=== PATIENT | male | born 1945 | race Caucasian/White ===

== ENCOUNTER 2019-02-02 16:24 | Emergency (ER) | payer MEDICARE ==
[2019-02-02 16:33] VITALS: TEMP 97.7
[2019-02-02] MEDS ORDERED: LIDOCAINE 1% INJ 10MG/ML (20 ML MDV) SQ ONE (17:02)
--- NOTE | 2019-02-02 17:26 | XR ---
PROCEDURE: XR 4th finger RT - 3V DATE AND TIME: 02/02/2019 5:16 PM CLINICAL INDICATION: PHH; right 4th digit TECHNIQUE: Department protocol COMPARISON: None FINDINGS: There is no fracture or malalignment. No radiopaque foreign body. There is moderate soft tissue swelling at the tip of the fourth finger, surrounding the distal 4th ph alanx and 4th DIP joint. IMPRESSION: Soft tissue swelling.
[2019-02-02] MEDS ORDERED: cefTRIAXone 1,000 MG VIAL (IM USE) IM STA (18:23)
--- NOTE | 2019-02-02 18:25 | ED ---
Skin/Abscess/FB HPI - General Chief complaint: Skin/Abscess/Foreign Body Stated complaint: Finger infection Time Seen by Provider: 02/02/19 16:36 Source: patient Mode of arrival: ambulatory Limitations: no limitations - History of Present Illness Initial comments: 74-year-old male with history of hypertension presenting today for chief complaint of right ring finger infection. Patient states about 6-7 days ago he cut the very tip of his finger with a custom feed corn operator. Patient states that he tightly wrapped the finger because it would not stop bleeding at that time with tape. Patient states that he began noticing after 2 days of keeping the tape on the had significant pain except up at night in the digit. He states he took the tape off he noticed pus at the tip of the finger on the pad of the finger. Patient states he attempted to drain it with a sterile needle that he was on fire prior to puncture. Patient states that he was able to drain some clear fluid. Patient denies fever or flulike symptoms. Denies any limitations in range of motion at the digit. Patient denies any fusiform swelling or 6 positioning of the finger. Patient denies any other area of complaint. Patient remaining review of system negative. Patient is not currently on antibiotics. - Related Data Previous Rx's Medication Instructions Recorded Cephalexin [Keflex] 500 mg PO Q6HR 10 Days #40 cap 02/02/19 Sulfamethox-Tmp 800-160Mg [Bactrim 1 tab PO Q12HR 10 Days #20 tab 02/02/19 DS 800-160 mg] Allergies Allergy/AdvReac Type Severity Reaction Status Date / Time No Known Allergies Allergy Verified 02/02/19 16:33 Review of Systems ROS Statement: Those systems with pertinent positive or pertinent negative responses have been documented in the HPI. ROS Other: All systems not noted in ROS Statement are negative. Past Medical History Past Medical History: Hypertension History of Any Multi-Drug Resistant Organisms: None Reported Past Surgical History: Cholecystectomy, Orthopedic Surgery, Tonsillectomy Past Psychological History: No Psychological Hx Reported Smoking Status: Never smoker Past Alcohol Use History: Rare Past Drug Use History: None Reported General Exam - General Exam Comments Initial Comments: General: The patient is awake and alert, in no distress, and does not appear acutely ill. Eye: Pupils on gross inspect appear equal, round, extra-ocular movements are intact grossly. No nystagmus. There is normal conjunctiva bilaterally. No signs of icterus. Cardiovascular: There is a regular rate and rhythm. No murmur, rub or gallop is appreciated. Respiratory: Lungs are clear to auscultation, respirations are non-labored, breath sounds are equal. No wheezes, stridor, rales, or rhonchi. Musculoskeletal: Upon inspection of the digits of both hands the pad of the right fourth digit has a obvious abscess. Fluctuance noted as well as white discoloration. This does not appear to be adjacent to the nailbed. There is mild erythema no fusiform swelling of the digit. Patient is able to fully extend and flex at the MTP DIP and PIP joint of the digit. Norflex positioning noted. Strength preserved sensation intact both proximal and distal to the affected area. Patient's capillary refill less than 3 seconds. And radial pulses are +2 equal comparison bilaterally. No noted swelling of the hand. Neurological: A&O x 3. CN II-XII intact grossly, There are no obvious motor or sensory deficits. Coordination appears grossly intact. Speech is normal. Skin: Skin is warm and dry and no rashes. Psychiatric: Cooperative, appropriate mood & affect, normal judgment. Limitations: no limitations Course Vital Signs 02/02/19 02/02/19 16:29 18:36 Temperature 97.7 F 97.7 F Pulse Rate 68 66 Respiratory 18 13 Rate Blood Pressure 156/78 199/94 O2 Sat by Pulse 97 98 Oximetry Procedures - Incision & Drainage Consent Obtained: verbal consent Indication: Abscess/felon Site: other (right 4th digit) Anesthetic Used: lidocaine 1% Amount (mLs): 3 (Digital block) I&D Cleaning Method: Iodine Sterile Field Used?: No Scalpel Used: #11 Needle Aspiration Performed?: No Irrigation Performed?: Yes I&D Drainage Obtained: Blood, Serous Culture Obtained?: No Patient Tolerated Procedure: well, no complications Medical Decision Making - Medical Decision Making Very pleasant 74-year-old male presenting for possible fourth right digit infection. There appears to be a developing fallen on physical examination. Imaging studies were obtained to rule out osteomyelitis. Only evidence of soft tissue swelling and imaging studies. Patient has no flulike symptoms. Afebrile. There is no findings consistent with a flexor tenosynovitis. I have patient evaluated in person by my attending provider Dr. Lay who recommended drainage and dual coverage antibiotics. Given the area of fluctuance he recommended approach from both sides with small incisions. I&D was performed only a small mall of serosanguineous fluid was obtained no large amount of gross paulette purulent drainage. Abscess appeared drained and appeared to be more superficial. There is no need for deeper incision at this time. The importance of return parameters and a wound check in 48 hours was discussed with patient. We discussed that there is high risk of spread of infection within the hand. Patient verbalized understanding. He states he will check and change the bandage daily to evaluate the extent of the infection. Patient appears well. Patient was discharged appearing well after bandage was applied to the area. He tolerated the procedure well. Disposition Clinical Impression: Ally of finger Disposition: HOME SELF-CARE Condition: Good Instructions (If sedation given, give patient instructions): Paronychia (ED) Additional Instructions: Please use medication as discussed. Please follow-up with orthopedic surgery in the next week. Please return to emergency room if the symptoms increase or worsen or for any other concerns, increasing swelling, redness, pain, drainage, flu like symtpoms, fever. Prescriptions: Sulfamethox-Tmp 800-160Mg [Bactrim DS 800-160 mg] 1 tab PO Q12HR 10 Days #20 tab Cephalexin [Keflex] 500 mg PO Q6HR 10 Days #40 cap Is patient prescribed a controlled substance at d/c from ED?: No Referrals: Charly Moreira MD [Primary Care Provider] - 1-2 days Lázaro Patterson DO [Medical Doctor] - 1-2 days Time of Disposition: 18:25
[2019-02-02 18:52] VITALS: BP 199/94; PULSE 66; RESP 13
== END 2019-02-02 18:36 | disposition home or self-care (01) ==
LOC: EC 16:24
DX: L03.011 Cellulitis of right finger (principal)
CPT/HCPCS: 73140; 99283; 10060; 96372; J2001; J0696

== ENCOUNTER 2019-02-11 12:46 | Emergency (ER) | payer MEDICARE ==
[2019-02-11 12:57] VITALS: BP 137/72; PULSE 77; RESP 18; TEMP 97.8
--- NOTE | 2019-02-11 13:35 | ED ---
Skin/Abscess/FB HPI - General Chief complaint: Skin/Abscess/Foreign Body Stated complaint: recheck finger injury Time Seen by Provider: 02/11/19 13:04 Source: patient, RN notes reviewed, old records reviewed Mode of arrival: ambulatory Limitations: no limitations - History of Present Illness Initial comments: This is a 74-year-old male the ER for evaluation. Patient resents today for evaluation regards to recheck of finger evaluation, recheck of finger pain. Patient has right index finger history of laceration, infection, difficult healing. Patient coming in for increased pain. No symptoms going up had no symptoms going up arm, no fevers. Patient did see Dr. Culp and follow-up as directed MD complaint: abscess/boil, lesion (Right index finger) -: week(s) Location: R hand Severity: mild, moderate Severity scale (1-10): 2 Quality: aching Consistency: constant Improves with: none Worsens with: none, palpation, movement Context: recent antibiotic Associated symptoms: denies other symptoms - Related Data Home Medications Medication Instructions Recorded Confirmed Losartan-Hctz 50-12.5 mg [Hyzaar 1 tab PO DAILY 02/11/19 02/11/19 50-12.5] Previous Rx's Medication Instructions Recorded Cephalexin [Keflex] 500 mg PO Q6HR 10 Days #40 cap 02/02/19 Sulfamethox-Tmp 800-160Mg [Bactrim 1 tab PO Q12HR 10 Days #20 tab 02/02/19 DS 800-160 mg] Allergies Allergy/AdvReac Type Severity Reaction Status Date / Time No Known Allergies Allergy Verified 02/11/19 13:32 Review of Systems ROS Statement: Those systems with pertinent positive or pertinent negative responses have been documented in the HPI. ROS Other: All systems not noted in ROS Statement are negative. Past Medical History Past Medical History: Hypertension History of Any Multi-Drug Resistant Organisms: None Reported Past Surgical History: Cholecystectomy, Orthopedic Surgery, Tonsillectomy Past Psychological History: No Psychological Hx Reported Smoking Status: Never smoker Past Alcohol Use History: Rare Past Drug Use History: None Reported General Exam - General Exam Comments Initial Comments: Patient does have swelling of the pulp in different stages of healing, does have area of necrosis near fingertip. Does have pain to palpation no streaking up arm Limitations: no limitations General appearance: alert, in no apparent distress Head exam: Present: atraumatic, normocephalic, normal inspection Eye exam: Present: normal appearance, PERRL, EOMI. Absent: scleral icterus, conjunctival injection, periorbital swelling ENT exam: Present: normal exam, mucous membranes moist Neck exam: Present: normal inspection. Absent: tenderness, meningismus, lymphadenopathy Respiratory exam: Present: normal lung sounds bilaterally. Absent: respiratory distress, wheezes, rales, rhonchi, stridor Cardiovascular Exam: Present: regular rate, normal rhythm, normal heart sounds. Absent: systolic murmur, diastolic murmur, rubs, gallop, clicks GI/Abdominal exam: Present: soft, normal bowel sounds. Absent: distended, tenderness, guarding, rebound, rigid Extremities exam: Present: normal inspection, full ROM, normal capillary refill. Absent: tenderness, pedal edema, joint swelling, calf tenderness Back exam: Present: normal inspection Neurological exam: Present: alert, oriented X3, CN II-XII intact Psychiatric exam: Present: normal affect, normal mood Skin exam: Present: warm, dry, intact, normal color. Absent: rash Course Vital Signs 02/11/19 12:54 Temperature 97.8 F Pulse Rate 77 Respiratory 18 Rate Blood Pressure 137/72 O2 Sat by Pulse 99 Oximetry Disposition Clinical Impression: Sofia, Encounter for wound re-check Disposition: HOME SELF-CARE Condition: Good Instructions (If sedation given, give patient instructions): Wound Infection (ED), Acute Wound Care (ED) Is patient prescribed a controlled substance at d/c from ED?: No Referrals: Charly Moreira MD [Primary Care Provider] - 1-2 days
== END 2019-02-11 14:58 | disposition home or self-care (01) ==
LOC: EC 12:46
DX: L03.011 Cellulitis of right finger (principal); S61.210D Laceration without foreign body of right index finger without damage to nail, subsequent encounter; I10 Essential (primary) hypertension; Z79.899 Other long term (current) drug therapy; X58.XXXD Exposure to other specified factors, subsequent encounter
CPT/HCPCS: 99283

== ENCOUNTER 2022-12-01 15:45 | Emergency (ER) | payer MEDICARE ==
[2022-12-01] MEDS ORDERED: SODIUM CHLORIDE 0.9% 1,000 ML IV STA (15:49)
[2022-12-01] MEDS ORDERED: SODIUM CHLORIDE 0.9% 500 ML 500 ML IV STA (15:49)
--- NOTE | 2022-12-01 16:22 | CT ---
EXAMINATION TYPE: CT brain wo con for TPA DATE OF EXAM: 12/01/2022 COMPARISON: None HISTORY: Neuro deficit, acute, stroke suspected CT DLP: 1911.[address] of the brain was performed. The ventricles, basal cisterns and sulci overlying the cerebral convexities demonstrate mild enlargem ent. There is no evidence for intracranial hemorrhage or sulcal effacement. There is decreased attenuation about the periventricular white matter and deep white matter of both c erebral hemispheres, compatible with chronic small vessel ischemia. Differential diagnosis does inclu de demyelination. No mass effects are seen.No midline shift. Osseous calvarium is intact. If symptoms persist consider MRI. IMPRESSION: 1. Age related atrophic and chronic small vessel ischemic change without acute intracranial process s een at this time.
[2022-12-01 16:28] LABS: Basophils % (A) 0 %; Eosinophils % (A) 0 %; HCT 44.3 % (39.0-53.0); HGB 14.2 gm/dL (13.0-17.5); Lymphocytes # (A) 0.3 k/uL (1.0-4.8); Lymphocytes % (A) 5 %; MCH 28.6 pg (25.0-35.0); MCV 89.2 fL (80.0-100.0); Mean Platelet Volume 9.4; Monocytes # (A) 0.2 k/uL (0-1.0); Monocytes % (A) 2 %; Neutrophils # (A) 6.7 k/uL (1.3-7.7); Neutrophils % (A) 92 %; Platelet Count 124 k/uL (150-450); RBC 4.96 m/uL (4.30-5.90); RDW 13.6 % (11.5-15.5); WBC 7.3 k/uL (3.8-10.6)
--- NOTE | 2022-12-01 16:28 | CT ---
EXAMINATION TYPE: CT angio head neck DATE OF EXAM: 12/01/2022 COMPARISON: None HISTORY: Neuro deficit, acute, stroke suspected CT DLP: 1911.6 mGycm CONTRAST: Performed with IV Contrast, patient injected with 65 mL of Isovue 370. Combination Contrast CTA cervical carotids and [place] of Madrigal CTA cervical carotids with 3-D recons truction Contrast CTA of the cervical carotids was performed 3-D reconstruction imaging obtained at a separate workstation. Right carotid system: Mild plaque is seen of the right common carotid artery. There is moderate next plaque also noted at the carotid bulb and proximal ICA. Estimated diameter reduction of 60-70% . E CA is patent. Right vertebral artery appears unremarkable. Left carotid system: Mild plaque is seen of the left common carotid artery. There is moderate soft p laque also noted at the carotid bulb and proximal ICA. Estimated diameter reduction of approximately 90%. ECA is patent. Left vertebral artery appears unremarkable. IMPRESSION: 1. Estimated diameter reduction proximal left ICA of 90%. 2. Estimated diameter reduction right proximal ICA of 60-70%. All CTA tribe of [place]rig[place] with 3-D reconstruction with Contrast CTA of the tribe of [place]rig[place] was performed 3-D reconstruction imaging obtained at a separate workstation. Vertebrobasilar system as well as intracranial portions of the internal carotid arteries and their ma alin tributaries are patent. I do not see evidence for sizable aneurysm or vascular malformation. Pl ease note MRI provides greater sensitivity and specificity. Visualized brain appears grossly unremar kable. IMPRESSION: 1. No significant abnormality. NASCET criteria was used in interpretation of this exam?
[2022-12-01 16:39] VITALS: TEMP 97.6
[2022-12-01 16:48] LABS: ALT 33 U/L (4-49); AST 37 U/L (17-59); African American GFR (CKD) 63 (>60 ml/min/1.73 sqM); Albumin 3.8 g/dL (3.5-5.0); Alkaline Phosphatase 97 U/L (38-126); Anion Gap 13 mmol/L; Blood Urea Nitrogen 20 mg/dL (9-20); Calcium 9.2 mg/dL (8.4-10.2); Carbon Dioxide 23 mmol/L (22-30); Chloride 102 mmol/L (98-107); Creatine Kinase 129 U/L (55-170); Glucose 151 mg/dL (74-99); INR 1.2 (<1.2); Non-African American GFR(CKD) 54 (>60 ml/min/1.73 sqM); Partial Thromboplastin Time 23.4 sec (22.0-30.0); Prothrombin Time 12.4 sec (9.0-12.0); Sodium 138 mmol/L (137-145); Total Bilirubin 1.4 mg/dL (0.2-1.3); Total Protein 6.4 g/dL (6.3-8.2)
--- NOTE | 2022-12-01 16:48 | ED ---
Neuro HPI - General Chief Complaint: Neuro Symptoms/Deficit Stated Complaint: Possible stroke Time Seen by Provider: 12/01/22 15:45 Source: family, EMS, RN notes reviewed Mode of arrival: EMS Limitations: no limitations - History of Present Illness Is the patient presenting with stroke symptoms?: Yes Initial Comments: 77-year-old male with a history of hypertension who initially was brought in by EMS after waking up this morning at 9 AM with left-sided facial droop and drooling left arm and leg weakness. This did not improve he has last known well time was 2 AM when he went to bed he states he admitted that time and did not have any symptoms. Later on. His stating he's been having some intermittent episodes of speech problems or last month or so no trauma reported no fevers chills sweats no palpitations no chest pain. He was brought in by EMS. No other current complaints or modifying factors - Related Data Home Medications: Home Medications Medication Instructions Recorded Confirmed Losartan-Hctz 50-12.5 mg [Hyzaar 1 tab PO DAILY 02/11/19 02/11/19 50-12.5] Previous Rx's Medication Instructions Recorded Cephalexin [Keflex] 500 mg PO Q6HR 10 Days #40 cap 02/02/19 Sulfamethox-Tmp 800-160Mg [Bactrim 1 tab PO Q12HR 10 Days #20 tab 02/02/19 DS 800-160 mg] Allergies/Adverse Reactions: Allergies Allergy/AdvReac Type Severity Reaction Status Date / Time No Known Allergies Allergy Verified 12/01/22 15:56 Review of Systems ROS Statement: Those systems with pertinent positive or pertinent negative responses have been documented in the HPI. ROS Other: All systems not noted in ROS Statement are negative. General Exam - General Exam Comments Initial Comments: This is a well-developed well-nourished awake alert oriented 4 male Limitations: no limitations General appearance: alert, anxious Head exam: Present: atraumatic, normocephalic, normal inspection Eye exam: Present: normal appearance, PERRL, EOMI. Absent: scleral icterus, con junctival injection, periorbital swelling ENT exam: Present: other (Left-sided facial droop compared to the right some drooling noted he is able to phonate however.) Neck exam: Present: normal inspection, full ROM, other. Absent: tenderness, meningismus, lymphadenopathy Extremities exam: Present: normal inspection, normal capillary refill. Absent: full ROM Back exam: Present: normal inspection Neurological exam: Present: alert, motor sensory deficit (Left Facial asymmetry compared to the right. Left arm with some movement but unable to maintain against gravity. Left leg unable to move). Absent: CN II-XII intact Stroke MDM - Lab Data Result diagrams: 12/01/22 16:15 Lab Results 12/01/22 Range/Units 16:15 WBC 7.3 (3.8-10.6) k/uL RBC 4.96 (4.30-5.90) m/uL Hgb 14.2 (13.0-17.5) gm/dL Hct 44.3 (39.0-53.0) % MCV 89.2 (80.0-100.0) fL MCH 28.6 (25.0-35.0) pg MCHC 32.0 (31.0-37.0) g/dL RDW 13.6 (11.5-15.5) % Plt Count 124 L (150-450) k/uL MPV 9.4 Neutrophils % 92 % Lymphocytes % 5 % Monocytes % 2 % Eosinophils % 0 % Basophils % 0 % Neutrophils # 6.7 (1.3-7.7) k/uL Lymphocytes # 0.3 L (1.0-4.8) k/uL Monocytes # 0.2 (0-1.0) k/uL Eosinophils # 0.0 (0-0.7) k/uL Basophils # 0.0 (0-0.2) k/uL - NIH Stroke Scale 1a. Level of Consciousness: (0) alert 1b. LOC Questions: (0) answers correctly 1c. LOC Commands: (0) performs tasks correctly 2. Best Gaze: (0) normal 3. Visual: (0) no visual loss 4. Facial Palsy: (2) partial paralysis 5a. Motor Arm Left: (2) some gravity effort 5b. Motor Arm Right: (0) no drift 6a. Motor Leg Left: (3) no gravity effort 6b. Motor Leg Right: (0) no drift 7. Limb Ataxia: (1) present 1 limb 8. Sensory: (0) normal 9. Best Language: (0) no aphasia 10. Dysarthria: (1) mild/moderate dysarthria 11. Extinction/Inattention: (0) no abnormality - Thrombolytic Inclusion/Exclusion Thrombolytic Exclusion Criteria: Symptom Onset > 4.5 Hours - Medical Decision Making I did discuss findings with the patient and his was present she informed me of the speech difficulties over last month. The extremity weakness and facial droop or new. He is not a TPA candidate due to the last well time of 2 AM I did discuss the case with Dr. Schwarz also with Dr. Davies the emergency department at [facility] area the patient will be transferred to [facility] to the [employer] for neuro intervention. Patient does far is maintaining his mentation and vital signs.Was pt. sent in by a medical professional or institution (, [facility], [employer], urgent care, hospital, or intermediate...) When possible be specific @ -Ur medics Did you speak to anyone other than the patient for history (EMS, parent, family, police, friend...)? What history was obtained from this source @ -No Did you review nursing and triage notes (agree or disagree)? Why? @ -I reviewed and agree with nursing and triage notes Were old charts reviewed (outside hosp., previous admission, EMS record, old EKG, old radiological studies, urgent care reports/EKG's, intermediate records)? Report findings @ - old charts were reviewed Differential Diagnosis (chest pain, altered mental status, abdominal pain women, abdominal pain men, vaginal bleeding, weakness, fever, dyspnea, syncope, headache, dizziness, GI bleed, back pain, seizure, CVA, palpatations, mental health, musculoskeletal)? @ -[facility] EKG interpreted by me (3pts min.). @ -As above X-rays interpreted by me (1pt min.). @ -As above CT interpreted by me (1pt min.). @ -As above U/S interpreted by me (1pt. min.). @ -None done What testing was considered but not performed or refused? (CT, X-rays, U/S, lab s)? Why? @ -None What meds were considered but not given or refused? Why? @ -TPA initially considered until the last known well time obtained] Did you discuss the management of the patient with other professionals (professionals i.e. , [facility], [employer], lab, RT, psych nurse, outreach and education social worker, management department chair, teacher, child support case officer, case packer and sealer)? Give summary @ -Dr. Schwarz and Dr. Davies Was smoking cessation discussed for >3mins.? @ -No Was critical care preformed (if so, how long)? @ -45 Were there social determinants of health that impacted care today? How? (Homelessness, low income, unemployed, alcoholism, drug addiction, transportation, low edu. Level, literacy, decrease access to med. care, fci, rehab)? @ -No Was there de-escalation of care discussed even if they declined (Discuss DNR or withdrawal of care, Hospice)? DNR status @ -No What co-morbidities impacted this encounter? (DM, HTN, Smoking, COPD, CAD, Cancer, CVA, ARF, Chemo, Hep., AIDS, mental health diagnosis, sleep apnea, morbid obesity)? @ -Hypertension Was patient admitted / discharged? Hospital course, mention meds given and rout e, prescriptions, significant lab abnormalities, going to OR and other pertinent info. @ -The patient was transferred by embolus to [facility] for neuro interventional treatment Undiagnosed new problem with uncertain prognosis? @ -CVA Drug Therapy requiring intensive monitoring for toxicity (Heparin, Nitro, Insulin, Cardizem)? @ -No Were any procedures done? @ -No Diagnosis/symptom? @ -Acute CVA Acute, or Chronic, or Acute on Chronic? @ -CVA Uncomplicated (without systemic symptoms) or Complicated (systemic symptoms)? @ -Complicated Side effects of treatment? @ -No Exacerbation, Progression, or Severe Exacerbation? @ -No Poses a threat to life or bodily function? How? (Chest pain, [place], [place], pneumonia, PE, COPD, DKA, ARF, appy, cholecystitis, CVA, Diverticulitis, Homicidal, Suicidal, threat to staff... 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 - EKG Data -: EKG Interpreted by Me (EKG interpreted by me shows a sinus rhythm of 74 OR interval 260 QRS durati) Past Medical History Past Medical History: Hypertension History of Any Multi-Drug Resistant Organisms: None Reported Past Surgical History: Cholecystectomy, Orthopedic Surgery, Tonsillectomy Past Psychological History: No Psychological Hx Reported Past Alcohol Use History: Rare Past Drug Use History: None Reported Course Vital Signs 12/01/22 12/01/22 15:47 16:00 Pulse Rate 73 70 Respiratory 16 16 Rate Blood Pressure 143/82 153/74 O2 Sat by Pulse 97 Oximetry Critical Care Time Critical Care Time: Yes Total Critical Care Time: 45 Disposition Clinical Impression: Cerebrovascular accident (CVA) Disposition: OTHER INSTITUTION NOT DEFINED Condition: Critical Referrals: Charly Moreira MD [Primary Care Provider] - 1-2 days Decision Date: 12/01/22 Decision Time: 16:48 - Out of Hospital Transfer - Req. Specs Out of Hospital Transfer - Requested Specifics: Other Emergency Center
--- NOTE | 2022-12-01 17:02 | XR ---
EXAMINATION TYPE: XR chest 2V DATE OF EXAM: 12/01/2022 COMPARISON: NONE HISTORY: Shortness of breath TECHNIQUE: Frontal and lateral views of the chest are obtained. FINDINGS: Scattered senescent parenchymal changes noted. No evidence for infiltrate. No evidence for atelectasis. Heart is enlarged. There is pulmonary venous congestion possibly small effusion on the right. No defi nite focal consolidation. Mediastinal structures are stable and grossly unremarkable. No evidence for hilar prominence. Degenerative changes dorsal spine. IMPRESSION: 1. Heart is enlarged. There is pulmonary venous congestion possibly small effusion on the right. No d efinite focal consolidation.
[2022-12-01 18:03] VITALS: BP 150/93; PULSE 64; RESP 18
== END 2022-12-01 18:00 | disposition other institution (70) ==
LOC: EC 15:45
DX: I63.9 Cerebral infarction, unspecified (principal); I10 Essential (primary) hypertension
CPT/HCPCS: 36415; 93005; 80053; 82550; 84484; 85025; 85610; 85730; 71046; 70496; 70450; 70498; 99291; 96360; Q9967